=== PATIENT | male | born 1955 | race Asian ===

== ENCOUNTER 2018-09-24 06:09 | Day surgery (SDC) | payer MEDICARE, OTHER ==
[~2018-09-24] VITALS: Ht 167.6 cm; Wt 62.3 kg
[~2018-09-24 06:09] MED LIST: SODIUM CHLORIDE 0.9% 1,000 ML IV ONE
[2018-09-24] MEDS ORDERED: LIDOCAINE 4% 50 ML SOLUTION TP ONE (06:10)
[2018-09-24] MEDS ORDERED: LIDOCAINE 2% 30 ML JELLY TP ONE (06:10)
[2018-09-24] MEDS ORDERED: BENZOCAINE 20% 50 MCG/SPRAY 57 GM TP ONE (06:10)
[2018-09-24] MEDS ORDERED: ALBUTEROL SULFATE 2.5 MG/0.5 ML NEB SOLUTION NEB ONE (06:10)
[2018-09-24] MEDS ORDERED: ROSU10TA22 PO (06:37)
[2018-09-24] MEDS ORDERED: ALBU8HFA IH (06:37)
[2018-09-24] MEDS ORDERED: AMLO-512 PO (06:37)
[2018-09-24] MEDS ORDERED: HYDR-4061 PO (06:37)
[2018-09-24] MEDS ORDERED: DICL50TA9 PO (06:37)
[2018-09-24] MEDS ORDERED: FAMO20 PO (06:37)
[2018-09-24] MEDS ORDERED: MONT10TA21 PO (06:37)
[2018-09-24] MEDS ORDERED: IBUP-2070 PO (06:37)
[2018-09-24] MEDS ORDERED: CHOL200059 PO (06:37)
[2018-09-24] MEDS ORDERED: CALC-975 PO (06:37)
[2018-09-24] MEDS ORDERED: ALEN70TA10 PO (06:37)
[2018-09-24] MEDS ORDERED: UMEC1DIS IH (06:37)
[2018-09-24] MEDS ORDERED: SODIUM CHLORIDE 0.9% 1,000 ML IV ONE (07:00)
[2018-09-24] MEDS ORDERED: FentaNYL CITRATE-PF 100 MCG/2 ML VIAL ONE (07:51)
[2018-09-24] MEDS ORDERED: MIDAZOLAM HCL 2 MG/2 ML VIAL ONE (07:51)
[2018-09-24] MEDS ORDERED: MethylPREDNISolone SOD SUCC 125 MG/2 ML VIAL IVP ONE (08:45)
[2018-09-24] MEDS ORDERED: OXYGEN THERAPY IH SCH (20:00)
== END 2018-09-24 09:55 | disposition home or self-care (01) ==
LOC: SURGERY 06:09
PROVIDERS: ATTEND Internal Medicine Critical Care Medicine
DX: J38.4 Edema of larynx (principal); B37.0 Candidal stomatitis; I10 Essential (primary) hypertension; K21.9 Gastro-esophageal reflux disease without esophagitis; E78.00 Pure hypercholesterolemia, unspecified
CPT/HCPCS: 31623; 31624; 71045; 87015; 87070; 87101; 87205; 87206; 87220; 88108; 88312; J2250; J2930; J3010; J7030

== ENCOUNTER 2020-01-06 05:56 | Day surgery (SDC) | payer MEDICARE, OTHER ==
[~2020-01-06] VITALS: Ht 167.6 cm; Wt 64.5 kg
[~2020-01-06 05:56] MED LIST changes: +ACET-66 PO; -SODIUM CHLORIDE 0.9% 1,000 ML IV ONE; +SODIUM CHLORIDE 0.9% 1,000 ML ONE
[2020-01-06] MEDS ORDERED: SODIUM CHLORIDE 0.9% 1,000 ML IV ONE (06:30)
[2020-01-06] MEDS ORDERED: MIDAZOLAM HCL 2 MG/2 ML VIAL ONE (07:49)
[2020-01-06] MEDS ORDERED: FentaNYL CITRATE-PF 100 MCG/2 ML VIAL ONE (07:50)
[2020-01-06] MEDS ORDERED: MethylPREDNISolone SOD SUCC 125 MG/2 ML VIAL IVP ONE (08:45)
[2020-01-06] MEDS ORDERED: ALBUTEROL SULFATE 2.5 MG/0.5 ML NEB SOLUTION NEB ONE (17:00)
[2020-01-06] MEDS ORDERED: BENZOCAINE 20% 50 MCG/SPRAY 57 GM ONE (17:00)
[2020-01-06] MEDS ORDERED: LIDOCAINE 4% 50 ML SOLUTION ONE (17:03)
[2020-01-06] MEDS ORDERED: LIDOCAINE 2% 5 ML JELLY ONE (17:03)
[2020-01-06] MEDS ORDERED: OXYGEN THERAPY IH SCH (20:00)
== END 2020-01-06 10:10 | disposition home or self-care (01) ==
LOC: SURGERY 05:56
PROVIDERS: ATTEND Internal Medicine Critical Care Medicine
DX: J38.4 Edema of larynx (principal); B37.0 Candidal stomatitis; Z11.59 Encounter for screening for other viral diseases; F17.210 Nicotine dependence, cigarettes, uncomplicated
CPT/HCPCS: 31623; 31624; 71045; 87015; 87070; 87077; 87101; 87186; 87205; 87206; 87220; 87635; 88108; 88312; J2250; J2930; J3010; J7030; J7613; Z7610

== ENCOUNTER 2022-07-25 06:03 | Day surgery (SDC) | payer MEDICARE, OTHER ==
[~2022-07-25] VITALS: Ht 167.6 cm; Wt 63.6 kg
[~2022-07-25 06:03] MED LIST changes: +ACET-3385 PO; -ACET-66 PO; -SODIUM CHLORIDE 0.9% 1,000 ML ONE
[2022-07-25] MEDS ORDERED: LIDOCAINE 4% 50 ML SOLUTION TP ONE (06:04)
[2022-07-25] MEDS ORDERED: LIDOCAINE 2% 11 ML JELLY TP ONE (06:04)
[2022-07-25] MEDS ORDERED: ALBUTEROL SULFATE 2.5 MG/0.5 ML NEB SOLUTION NEB ONE (06:04)
[2022-07-25] MEDS ORDERED: BENZOCAINE 20% 50 MCG/SPRAY 57 GM TP ONE (06:04)
[2022-07-25] MEDS ORDERED: SODIUM CHLORIDE 0.9% 1,000 ML IV ONE (06:30)
[2022-07-25 07:04] LABS: COVID AG,FIA SOURCE NASAL SWAB
[2022-07-25] MEDS ORDERED: PRED-554 PO (07:17)
[2022-07-25] MEDS ORDERED: CHOL25TA4 PO (07:17)
[2022-07-25] MEDS ORDERED: SIMV-259 PO (07:17)
[2022-07-25] MEDS ORDERED: SUCR1ORA15 PO (07:17)
[2022-07-25] MEDS ORDERED: OMEG10005 PO (07:17)
[2022-07-25] MEDS ORDERED: CALC-1124 PO (07:17)
[2022-07-25] MEDS ORDERED: OMEP20 PO (07:17)
[2022-07-25] MEDS ORDERED: AMLO-257 PO (07:17)
[2022-07-25] MEDS ORDERED: GABA-1181 PO (07:17)
[2022-07-25] MEDS ORDERED: BACL10TA PO (07:17)
[2022-07-25] MEDS ORDERED: METF-1211 PO (07:17)
[2022-07-25] MEDS ORDERED: ASPI-1450 PO (07:17)
[2022-07-25] MEDS ORDERED: DOXY-354 PO (07:17)
[2022-07-25] MEDS ORDERED: TRAM-559 PO (07:17)
[2022-07-25] MEDS ORDERED: SODIUM CHLORIDE 0.9% 1,000 ML ONE (07:38)
[2022-07-25] MEDS ORDERED: FentaNYL CITRATE PF 100 MCG/2 ML VIAL ONE (08:14)
[2022-07-25] MEDS ORDERED: MIDAZOLAM HCL 2 MG/2 ML VIAL ONE (08:14)
[2022-07-25] MEDS ORDERED: MethylPREDNISolone SOD SUCC 125 MG/2 ML VIAL IVP ONE (09:15)
[2022-07-25] MEDS ORDERED: MethylPREDNISolone SOD SUCC 125 MG/2 ML VIAL ONE (09:20)
[2022-07-25] MEDS ORDERED: OXYGEN THERAPY IH SCH (20:00)
== END 2022-07-25 10:50 | disposition home or self-care (01) ==
LOC: SURGERY 06:03
PROVIDERS: ATTEND Internal Medicine Critical Care Medicine
DX: J38.4 Edema of larynx (principal); B37.0 Candidal stomatitis; I10 Essential (primary) hypertension; Z20.822 Contact with and (suspected) exposure to COVID-19; Z79.899 Other long term (current) drug therapy
CPT/HCPCS: 31623; 88112; 87101; 87220; 87070; 88305; 31624; 94640; 71045; 87015; 87426; 87206; J3010; J2250; J2930; Q9967; J7030; C9803; J7613; Z7610

== ENCOUNTER 2024-04-27 06:18 | Day surgery (SDC) | payer MEDICARE, OTHER ==
[~2024-04-27] VITALS: Ht 165.1 cm; Wt 63.7 kg
[~2024-04-27 06:18] MED LIST changes: +AMLO-257 PO; +ASPI-1450 PO; +BACL10TA PO; +CALC-1124 PO; +CHOL25TA4 PO; +DOXY-354 PO; +GABA-1181 PO; +METF-1211 PO; +OMEG100014 PO; +OMEP20 PO; +PRED-554 PO; +SIMV-259 PO; +SUCR1ORA PO; +TRAM50TA5 PO
[2024-04-27] MEDS ORDERED: BENZOCAINE 20% 50 MCG/SPRAY 57 GM TP ONE (06:19)
[2024-04-27] MEDS ORDERED: ALBUTEROL SULFATE 2.5 MG/0.5 ML NEB SOLUTION NEB ONE (06:19)
[2024-04-27] MEDS ORDERED: LIDOCAINE 2% 11 ML JELLY TP ONE (06:19)
[2024-04-27] MEDS ORDERED: LIDOCAINE 4% 50 ML SOLUTION TP ONE (06:19)
[2024-04-27] MEDS ORDERED: SODIUM CHLORIDE 0.9% 1,000 ML ONE (07:31)
[2024-04-27] MEDS: SODIUM CHLORIDE 0.9% 1,000 ML IV ONE (07:59)
[2024-04-27] MEDS ORDERED: MIDAZOLAM HCL 2 MG/2 ML VIAL ONE (08:19)
[2024-04-27] MEDS ORDERED: FentaNYL CITRATE PF 100 MCG/2 ML VIAL ONE (08:19)
[2024-04-27] MEDS ORDERED: IBUP-1493 PO (08:20)
[2024-04-27] MEDS ORDERED: ROSU10TA72 PO (08:20)
[2024-04-27] MEDS ORDERED: MONT-35 PO (08:20)
[2024-04-27] MEDS ORDERED: FLUT1BLS15 IH (08:20)
[2024-04-27 09:20] VITALS: PULSE 57; RESP 18; O2SAT 99
[2024-04-27 09:33] LABS: GLUCOMETER DEV NAME(LOC) SDS.; GLUCOSE,POINT OF CARE 117 MG/DL (70-110)
[2024-04-27] MEDS ORDERED: MethylPREDNISolone SOD SUCC 125 MG/2 ML VIAL ONE (09:46)
[2024-04-27] MEDS: MethylPREDNISolone SOD SUCC 125 MG/2 ML VIAL IVP ONE (09:50)
== END 2024-04-27 12:47 | disposition home or self-care (01) ==
LOC: SURGERY 06:18
PROVIDERS: ATTEND Internal Medicine Critical Care Medicine
DX: R05.3 Chronic cough (principal); R06.2 Wheezing; R49.0 Dysphonia; R04.2 Hemoptysis; F45.8 Other somatoform disorders; J38.4 Edema of larynx; B37.0 Candidal stomatitis; I10 Essential (primary) hypertension; E11.9 Type 2 diabetes mellitus without complications; F17.200 Nicotine dependence, unspecified, uncomplicated; Z98.42 Cataract extraction status, left eye; Z98.818 Other dental procedure status
CPT/HCPCS: 31623; 82962; 87206; 87101; 87220; 87070; 88108; 31624; 94640; 71045; 87015; J3010; J2250; J2919; J7030; J7613; Z7610